=== PATIENT | male | born 1950 | race African-American/Black ===

== ENCOUNTER 2016-07-15 07:56 | Emergency (ER) | payer OTHER, MEDICAID ==
[~2016-07-15] VITALS: Ht 172.7 cm; Wt 59.0 kg
[~2016-07-15 07:56] MED LIST: ALBU2TAB44; FLUT1DIS
[2016-07-15] MEDS ORDERED: ALBUTEROL (0.083%) 2.5MG/3ML NEB HHN STA (08:42)
[2016-07-15] MEDS ORDERED: IPRATROPIUM BROMIDE (0.02%) 0.5MG/2.5ML NEB HHN STA (08:42)
[2016-07-15] MEDS ORDERED: PREDNISONE 20MG TABLET PO STA (08:42)
[2016-07-15] MEDS ORDERED: METHYLPREDNISOLONE SOD SUCC 125 MG/2 ML VIAL IV STA (08:42)
[2016-07-15 09:12] LABS: HEMATOCRIT. 44.5 % (42.0-52.0); HEMOGLOBIN. 14.6 g/dL (14.0-18.0); MEAN CORPUSCULAR HEMOGLOBIN 32.3 pg (28.0-32.0); MEAN CORPUSCULAR HGB CONC 32.8 g/dL (31.0-37.0); MEAN CORPUSCULAR VOLUME 98.5 fL (80.0-94.0); RED BLOOD CELL COUNT 4.52 mill/uL (4.7-6.1); RED CELL DISTRIBUTION WIDTH 14.2 % (11.6-14.6); WHITE BLOOD COUNT 4.1 x1000/uL (4.5-11.0)
[2016-07-15 09:17] LABS: DIFFERENTIAL COMMENT 1
[2016-07-15 09:20] LABS: INR 1.1; PARTIAL THROMBOPLASTIN TIME 27.2 sec (24.0-34.0); PROTHROMBIN TIME 11.2 sec
[2016-07-15 09:28] LABS: ALANINE AMINOTRANSFERASE 23 IU/L (13-61); ALBUMIN 4.1 g/dL (3.4-5.0); ANION GAP 12; CALCIUM 8.8 mg/dL (8.5-10.1); CARBON DIOXIDE 28 mEq/L (21-32); CHLORIDE 108 mEq/L (98-107); INDEX HEMOLYSI 2 (1-3); INDEX ICTERIC 1 (1-4); INDEX LIPEMIC 1 (1-3); LIPASE 104 IU/L (73-393); NT PRO B-TYPE NATRIURETIC PEP 95 pg/mL (5-125); TROPONIN I < 0.02 ng/mL (0.00-0.04); UREA NITROGEN BLOOD 15 mg/dL (7-21); eGFR > 60 mL/min (>60)
[2016-07-15 09:55] LABS: ATYPICAL LYMPHOCYTES 1
[2016-07-15 09:56] LABS: PLATELET ESTIMATE SLIGHTLY DECREASED
[2016-07-15 09:57] LABS: PLATELET 108 x1000/uL (130-400)
[2016-07-15 10:31] VITALS: BP 150/109
== END 2016-07-15 10:40 | disposition home or self-care (01) ==
LOC: ER 09:03
DX: J45.901 Unspecified asthma with (acute) exacerbation (principal); I87.2 Venous insufficiency (chronic) (peripheral); I10 Essential (primary) hypertension; F10.20 Alcohol dependence, uncomplicated; J44.9 Chronic obstructive pulmonary disease, unspecified; F32.9 Major depressive disorder, single episode, unspecified; E78.00 Pure hypercholesterolemia, unspecified; F20.9 Schizophrenia, unspecified; F17.210 Nicotine dependence, cigarettes, uncomplicated; Z79.899 Other long term (current) drug therapy
CPT/HCPCS: 36415; 71010; 80053; 83690; 83880; 84484; 85025; 85610; 85730; 93005; 94640; 96374; 99285; J2930; J7512; J7611

== ENCOUNTER 2016-08-20 14:06 | Emergency (ER) | payer OTHER, MEDICAID ==
[~2016-08-20] VITALS: Ht 172.7 cm; Wt 59.0 kg
[2016-08-20 14:16] VITALS: BP 142/84
== END 2016-08-20 17:34 | disposition home or self-care (01) ==
LOC: ER 16:11
DX: L30.9 Dermatitis, unspecified (principal); J45.909 Unspecified asthma, uncomplicated; J44.9 Chronic obstructive pulmonary disease, unspecified; F32.9 Major depressive disorder, single episode, unspecified; F20.9 Schizophrenia, unspecified; E78.00 Pure hypercholesterolemia, unspecified; F17.200 Nicotine dependence, unspecified, uncomplicated
CPT/HCPCS: 99283

== ENCOUNTER 2018-02-05 10:43 | Inpatient (IN) | payer OTHER, MEDICAID ==
[~2018-02-05] VITALS: Ht 177.8 cm; Wt 58.5 kg
[2018-02-05] MEDS ORDERED: SODIUM CHLORIDE 0.9% 1,000 ML IV ONE (12:49)
[2018-02-05] MEDS ORDERED: ONDANSETRON HCL 4MG/2ML INJ IV STA (12:49)
[2018-02-05] MEDS ORDERED: MORPHINE SULFATE 4 MG/ML CPJ (NOT FOR IM USE) IV STA (12:49)
[2018-02-05 13:34] LABS: BASOPHILS % 0.7 % (0.0-2.0); EOSINOPHILS % 4.1 % (0.0-5.0); HEMATOCRIT. 44.1 % (42.0-52.0); HEMOGLOBIN. 14.7 g/dL (14.0-18.0); LYMPHOCYTES % 21.3 % (20.0-50.0); MEAN CORPUSCULAR HEMOGLOBIN 32.7 pg (28.0-32.0); MEAN CORPUSCULAR VOLUME 97.8 fL (80.0-94.0); MEAN PLATELET VOLUME 9.4 fl (7.4-10.4); MONOCYTES % 14.8 % (2.0-8.0); NEUTROPHILS % 59.1 % (40.0-76.0); PLATELET 113 x1000/uL (130-400); RED BLOOD CELL COUNT 4.51 mill/uL (4.7-6.1); RED CELL DISTRIBUTION WIDTH 15.5 % (11.6-14.6)
[2018-02-05 13:35] LABS: CHLORIDE 100 mEq/L (98-107); D-DIMER 0.65 mg/L FEU (<0.50); ETHANOL BLOOD < 10 mg/dL; INR 1.1; PARTIAL THROMBOPLASTIN TIME 28.5 sec (23.4-31.0); PROTHROMBIN TIME 10.6 sec (9.1-11.1)
[2018-02-05 16:19] LABS: *AMPHETAMINES SCREEN URINE NEGATIVE (NEGATIVE); *BARBITURATES SCREEN URINE NEGATIVE (NEGATIVE); *BENZODIAZEPINES SCREEN URINE NEGATIVE (NEGATIVE); *COCAINE SCREEN URINE NEGATIVE (NEGATIVE); CANNABINOID URINE SCREEN NEGATIVE (NEGATIVE); METHADONE URINE SCREEN NEGATIVE (NEGATIVE); OPIATES URINE SCREEN PRESUMTIVE POSITIVE (NEGATIVE); PHENCYCLIDINE URINE SCREEN NEGATIVE (NEGATIVE)
[2018-02-05 16:31] LABS: CLARITY URINE CLOUDY (CLEAR); COLOR URINE DARK YELLOW (YELLOW); KETONES URINE 1+ (NEGATIVE); LEUKOCYTE ESTERASE URINE 1+ (NEGATIVE); NITRITE URINE NEGATIVE (NEGATIVE); OCCULT BLOOD URINE 1+ (NEGATIVE); PH URINE 5.5 (4.5-8.0); PROTEIN URINE 1+ (NEGATIVE); SPECIFIC GRAVITY URINE 1.024 (1.005-1.030)
[2018-02-05] MEDS ORDERED: ASPIRIN 325MG EC TABLET PO ONE (17:15)
[2018-02-05] MEDS ORDERED: IOHEXOL-350 100 ML BOTTLE ONE (18:37)
[2018-02-05 21:20] VITALS: BP 134/90
[2018-02-05] MEDS ORDERED: ONDANSETRON HCL 4MG/2ML INJ IV PRN (22:15)
[2018-02-05] MEDS ORDERED: LOPERAMIDE 2 MG/10 ML UDC PO PRN (22:15)
[2018-02-05] MEDS ORDERED: PANTOPRAZOLE SODIUM 40 MG/VIAL IV NR (23:00)
[2018-02-05] MEDS: TEMAZEPAM 15MG CAPSULE PO PRN (23:09)
[2018-02-05] MEDS: MORPHINE SULFATE 4 MG/ML CPJ (NOT FOR IM USE) IV PRN (23:10)
[2018-02-05] MEDS: SODIUM CHLORIDE 0.9% 1,000 ML IV SCH (23:24)
[2018-02-06] VITALS (7 sets, daily range): BP systolic 102–136; BP diastolic 70–96
[2018-02-06] MEDS ORDERED: CYAN10009 PO (00:04)
[2018-02-06] MEDS ORDERED: TAMS0.4C31 PO (00:04)
[2018-02-06] MEDS ORDERED: LOPE2CAP MT (00:04)
[2018-02-06] MEDS ORDERED: FOLI-43 PO (00:04)
[2018-02-06 02:59] LABS: CREATINE KINASE 137 IU/L (39-308); CREATINE KINASE MB FRACTION 1.2 ng/mL (0.5-3.6)
[2018-02-06] MEDS ORDERED: IPRATROPIUM/ALBUTEROL 0.5-3(2.5)MG/3ML NEB HHN PRN (06:15)
[2018-02-06] MEDS ORDERED: CYANOCOBALAMIN 1000MCG TABLET PO SCH (07:40)
[2018-02-06 08:00] LABS: BASOPHILS % 0.4 % (0.0-2.0); EOSINOPHILS % 5.3 % (0.0-5.0); HEMATOCRIT. 42.3 % (42.0-52.0); HEMOGLOBIN. 13.9 g/dL (14.0-18.0); LYMPHOCYTES % 23.7 % (20.0-50.0); MEAN CORPUSCULAR HEMOGLOBIN 32.7 pg (28.0-32.0); MEAN CORPUSCULAR VOLUME 99.1 fL (80.0-94.0); MEAN PLATELET VOLUME 8.8 fl (7.4-10.4); MONOCYTES % 14.4 % (2.0-8.0); NEUTROPHILS % 56.2 % (40.0-76.0); PLATELET 93 x1000/uL (130-400); RED BLOOD CELL COUNT 4.27 mill/uL (4.7-6.1); RED CELL DISTRIBUTION WIDTH 15.6 % (11.6-14.6)
[2018-02-06] MEDS ORDERED: THIAMINE HCL 100MG TABLET PO SCH (09:00)
[2018-02-06] MEDS ORDERED: ASPIRIN 81MG TABLET PO SCH (09:00)
[2018-02-06] MEDS ORDERED: TAMSULOSIN HCL 0.4MG SR CAPSULE PO SCH (09:00)
[2018-02-06] MEDS ORDERED: PANTOPRAZOLE SODIUM 40 MG/VIAL IV SCH ×2 (09:00→17:00)
[2018-02-06] MEDS ORDERED: FOLIC ACID 1MG TABLET PO SCH (09:00)
[2018-02-06] MEDS ORDERED: IPRATROPIUM/ALBUTEROL 0.5-3(2.5)MG/3ML NEB HHN SCH (09:00)
[2018-02-06] MEDS ORDERED: ENOXAPARIN 40MG/0.4ML SYR SUBCUT SCH (09:00)
[2018-02-06] MEDS: MORPHINE SULFATE 4 MG/ML CPJ (NOT FOR IM USE) IV PRN ×2 (09:05→21:12)
[2018-02-06 09:23] LABS: CHLORIDE 104 mEq/L (98-107); CREATINE KINASE 130 IU/L (39-308); CREATINE KINASE MB FRACTION 1.5 ng/mL (0.5-3.6)
[2018-02-06] MEDS ORDERED: SIMETHICONE 80MG TABLET CHEW PO PRN (12:15)
[2018-02-06] MEDS ORDERED: LEVOFLOXACIN 500MG PREMIX 100 ML IV SCH (13:00)
[2018-02-06] MEDS ORDERED: NICOTINE 21MG PATCH TD SCH (13:45)
[2018-02-06] MEDS: SUCRALFATE 1 G/10 ML UDC PO SCH ×2 (16:16→21:11)
[2018-02-06] MEDS: HYDROCORTISONE 2.5% OINT 20GM TOP SCH ×2 (16:17→21:11)
[2018-02-06 18:01] LABS: CREATINE KINASE 143 IU/L (39-308); CREATINE KINASE MB FRACTION 1.3 ng/mL (0.5-3.6)
[2018-02-06] MEDS ORDERED: LORAZEPAM 2MG/ML CPJ IV PRN (18:30)
[2018-02-06 18:59] LABS: TOTAL IRON BINDING CAPACITY 263 ug/dL (250-450)
[2018-02-06 19:37] LABS: FERRITIN 281 ng/mL (22-322); VITAMIN B12 SERUM 616 pg/mL (211-911)
[2018-02-06 19:56] LABS: FOLIC ACID (FOLATE) SERUM > 20.00 ng/mL (>5.38)
[2018-02-06] MEDS ORDERED: BUDESONIDE 0.5MG/2ML NEB HHN SCH (21:00)
[2018-02-06] MEDS: TEMAZEPAM 15MG CAPSULE PO PRN (21:11)
[2018-02-07] MEDS: SODIUM CHLORIDE 0.9% 1,000 ML IV SCH
[2018-02-07] MEDS: HYDROCORTISONE 2.5% OINT 20GM TOP SCH (06:36)
[2018-02-07] MEDS: SUCRALFATE 1 G/10 ML UDC PO SCH (06:39)
== END 2018-02-07 07:30 | disposition left against medical advice (07) | DRG 391 ==
LOC: ER 10:43 → EDBEDREQ 17:12 → ENRESERV 19:22 → 8WST 21:15
PROVIDERS: ADMIT Internal Medicine; ATTEND Internal Medicine
DX: K29.70 Gastritis, unspecified, without bleeding (principal); K85.20 Alcohol induced acute pancreatitis without necrosis or infection; J44.1 Chronic obstructive pulmonary disease with (acute) exacerbation; N39.0 Urinary tract infection, site not specified; K86.0 Alcohol-induced chronic pancreatitis; D53.9 Nutritional anemia, unspecified; R19.7 Diarrhea, unspecified; K57.90 Diverticulosis of intestine, part unspecified, without perforation or abscess without bleeding; D69.6 Thrombocytopenia, unspecified; D72.819 Decreased white blood cell count, unspecified; R07.9 Chest pain, unspecified; Z53.21 Procedure and treatment not carried out due to patient leaving prior to being seen by health care provider; E78.00 Pure hypercholesterolemia, unspecified; E86.0 Dehydration; F17.210 Nicotine dependence, cigarettes, uncomplicated; F20.9 Schizophrenia, unspecified; F32.9 Major depressive disorder, single episode, unspecified; I10 Essential (primary) hypertension; K76.0 Fatty (change of) liver, not elsewhere classified; K86.89 Other specified diseases of pancreas; L30.9 Dermatitis, unspecified; N28.1 Cyst of kidney, acquired; N40.0 Benign prostatic hyperplasia without lower urinary tract symptoms; F10.20 Alcohol dependence, uncomplicated; Z79.899 Other long term (current) drug therapy
CPT/HCPCS: 36415; 71045; 71275; 74176; 76700; 80048; 80076; 80305; 82550; 82553; 82607; 82728; 82746; 83540; 83550; 83880; 84153; 84484; 85379; 87077; 87186; 93005; 93306; 96361; 96374; 96375; 99285; C9113; G0482; J1650; J1956; J2270; J2405; J7030; Q9967; G0103

== ENCOUNTER 2023-08-02 11:52 | Inpatient (IN) | payer MEDICARE, OTHER ==
[~2023-08-02] VITALS: Ht 172.7 cm; Wt 57.2 kg
[~2023-08-02 11:52] MED LIST changes: -ALBU2TAB44; +AMLO5TAB88 PO; -FLUT1DIS; +MIRT-89 PO; +OMEP20TA23 MT; +THIA100T72 MT; +albuterol inhaler; +flonase nasal spray; +trelegy ellipta
[2023-08-02] MEDS: METHYLPREDNISOLONE SOD SUCC 125MG/2ML (ACT-O-VIAL) IV STA (12:54)
[2023-08-02] MEDS: ASPIRIN 81MG TABLET PO ONE (12:54)
[2023-08-02 13:06] LABS: BASOPHILS % 0.4 % (0.0-2.0); DIFFERENTIAL COMMENT 0; EOSINOPHILS % 4.7 % (0.0-5.0); HEMATOCRIT. 42.6 % (42.0-52.0); HEMOGLOBIN. 14.2 g/dL (14.0-18.0); LYMPHOCYTES % 29.2 % (20.0-50.0); MEAN CORPUSCULAR HEMOGLOBIN 33.8 pg (28.0-32.0); MEAN CORPUSCULAR HGB CONC 33.2 g/dL (31.0-37.0); MEAN CORPUSCULAR VOLUME 101.6 fL (80.0-94.0); MEAN PLATELET VOLUME 8.8 fl (7.4-10.4); MONOCYTES % 13.1 % (2.0-8.0); NEUTROPHILS % 52.6 % (40.0-76.0); PLATELET 162 x1000/uL (130-400); RED CELL DISTRIBUTION WIDTH 16.9 % (11.6-14.6); WHITE BLOOD COUNT 3.6 x1000/uL (4.5-11.0)
[2023-08-02 14:17] LABS: CHLORIDE 103 mEq/L (98-107); POTASSIUM 3.9 mEq/L (3.5-5.1); SODIUM 136 mEq/L (136-145)
[2023-08-02 14:18] LABS: CARBON DIOXIDE 22 mEq/L (21-32)
[2023-08-02 14:19] LABS: CALCIUM 9.3 mg/dL (8.7-10.4)
[2023-08-02 14:23] LABS: CREATININE 1.4 mg/dL (0.6-1.3); GLUCOSE 94 mg/dL (70-105)
[2023-08-02 14:24] LABS: TROPONIN I HIGH SENSITIVITY 5 ng/L (3.0-53); UREA NITROGEN BLOOD 22 mg/dL (9-23)
[2023-08-02 14:25] LABS: ALANINE AMINOTRANSFERASE 12 IU/L (10-49); ALBUMIN 4.5 g/dL (3.2-4.8); ASPARTATE AMINOTRANSFERASE 31 IU/L (<34)
[2023-08-02 14:26] LABS: BILIRUBIN TOTAL 1.7 mg/dL (0.1-1.0); PROTEIN TOTAL 7.6 g/dL (6.0-8.3)
[2023-08-02] MEDS: IPRATROPIUM BROMIDE (0.02%) 0.5MG/2.5ML NEB HHN STA (18:34)
[2023-08-02] MEDS: ALBUTEROL (0.083%) 2.5MG/3ML NEB HHN STA (18:34)
[2023-08-02 20:00] VITALS: BP 116/86; PULSE 93; RESP 30; TEMP 98
[2023-08-02 21:35] VITALS: BP 116/86; PULSE 96; RESP 18; TEMP 98
[2023-08-03] VITALS (10 sets, daily range): BP systolic 110–147; BP diastolic 75–111; PULSE 80–96; RESP 18–22; TEMP 97.3–98.2; O2SAT 94–98
[2023-08-03 00:03] LABS: HEPATITIS B SURFACE ANTIGEN NEGATIVE (Negative)
[2023-08-03 00:29] LABS: HEPATITIS C AB REACTIVE (Pos) (Negative)
[2023-08-03] MEDS ORDERED: IPRATROPIUM/ALBUTEROL 0.5-3(2.5)MG/3ML NEB HHN PRN (00:30)
[2023-08-03] MEDS ORDERED: HYDROCODONE/ACETAMINOPHEN 5/325MG TABLET PO PRN (00:30)
[2023-08-03] MEDS ORDERED: ONDANSETRON HCL 4MG/2ML INJ IV PRN (00:30)
[2023-08-03] MEDS ORDERED: ACETAMINOPHEN 650MG/20.3ML UDC PO PRN (00:30)
[2023-08-03] MEDS ORDERED: NALOXONE HCL 0.4MG/ML VIAL IV PRN (00:45)
[2023-08-03 06:57] LABS: HEMATOCRIT. 39.7 % (42.0-52.0); HEMOGLOBIN. 13.1 g/dL (14.0-18.0); MEAN CORPUSCULAR HEMOGLOBIN 33.3 pg (28.0-32.0); MEAN CORPUSCULAR HGB CONC 33.1 g/dL (31.0-37.0); MEAN CORPUSCULAR VOLUME 100.7 fL (80.0-94.0); MEAN PLATELET VOLUME 9.2 fl (7.4-10.4); PLATELET 114 x1000/uL (130-400); RED BLOOD CELL COUNT 3.94 mill/uL (4.7-6.1); RED CELL DISTRIBUTION WIDTH 16.6 % (11.6-14.6); WHITE BLOOD COUNT 2.1 x1000/uL (4.5-11.0)
[2023-08-03] MEDS ORDERED: CLONIDINE 0.1MG TABLET PO PRN (07:00)
[2023-08-03] MEDS ORDERED: DOCUSATE SODIUM 100MG CAPSULE PO PRN (07:00)
[2023-08-03] MEDS: OMEPRAZOLE 20MG CAPSULE EXTENDED RELEASE PO SCH (07:02)
[2023-08-03 07:09] LABS: DIFFERENTIAL COMMENT 1
[2023-08-03 07:23] LABS: CHLORIDE 103 mEq/L (98-107); POTASSIUM 4.1 mEq/L (3.5-5.1); SODIUM 136 mEq/L (136-145)
[2023-08-03 07:24] LABS: CARBON DIOXIDE 26 mEq/L (21-32)
[2023-08-03 07:29] LABS: CREATININE 1.2 mg/dL (0.6-1.3)
[2023-08-03 07:30] LABS: GLUCOSE 152 mg/dL (70-105); UREA NITROGEN BLOOD 25 mg/dL (9-23)
[2023-08-03] MEDS: AMLODIPINE 5MG TABLET PO SCH (08:08)
[2023-08-03] MEDS: ENOXAPARIN 30MG/0.3ML SYR SUBCUT SCH (08:08)
[2023-08-03] MEDS: IPRATROPIUM/ALBUTEROL 0.5-3(2.5)MG/3ML NEB HHN SCH (08:51)
[2023-08-03 16:05] LABS: ANISOCYTOSIS 1+; PLATELET ESTIMATE SLIGHTLY DECREASED
[2023-08-03 17:06] LABS: *AMPHETAMINES SCREEN URINE NEGATIVE (NEGATIVE); *BARBITURATES SCREEN URINE NEGATIVE (NEGATIVE); *BENZODIAZEPINES SCREEN URINE NEGATIVE (NEGATIVE); *COCAINE SCREEN URINE NEGATIVE (NEGATIVE); CANNABINOID URINE SCREEN NEGATIVE (NEGATIVE); ECSTASY MDMA SCREEN URINE NEGATIVE (NEGATIVE); METHADONE URINE SCREEN NEGATIVE (NEGATIVE); OPIATES URINE SCREEN NEGATIVE (NEGATIVE); PHENCYCLIDINE URINE SCREEN NEGATIVE (NEGATIVE)
[2023-08-03] MEDS: METHYLPREDNISOLONE SOD SUCC 40MG/ML (ACT-O-VIAL) IV SCH (18:53)
[2023-08-03] MEDS: MIRTAZAPINE 15MG TABLET PO SCH (21:13)
[2023-08-04 04:00] VITALS: BP 110/79; PULSE 87; TEMP 98.2
[2023-08-04 08:00] VITALS: BP 120/79; PULSE 85; TEMP 97.9
[2023-08-04 08:18] LABS: BASOPHILS % 0.4 % (0.0-2.0); DIFFERENTIAL COMMENT 0; HEMATOCRIT. 39.5 % (42.0-52.0); HEMOGLOBIN. 12.8 g/dL (14.0-18.0); LYMPHOCYTES % 30.2 % (20.0-50.0); MEAN CORPUSCULAR HEMOGLOBIN 33.2 pg (28.0-32.0); MEAN CORPUSCULAR HGB CONC 32.5 g/dL (31.0-37.0); MEAN CORPUSCULAR VOLUME 102.1 fL (80.0-94.0); MONOCYTES % 11.8 % (2.0-8.0); NEUTROPHILS % 55.6 % (40.0-76.0); PLATELET 113 x1000/uL (130-400); RED BLOOD CELL COUNT 3.86 mill/uL (4.7-6.1); RED CELL DISTRIBUTION WIDTH 15.9 % (11.6-14.6)
[2023-08-04 08:24] LABS: CARBON DIOXIDE 28 mEq/L (21-32); CHLORIDE 106 mEq/L (98-107); POTASSIUM 3.5 mEq/L (3.5-5.1); SODIUM 138 mEq/L (136-145)
[2023-08-04 08:25] LABS: CALCIUM 9.4 mg/dL (8.7-10.4)
[2023-08-04 08:28] LABS: CREATININE 1.1 mg/dL (0.6-1.3)
[2023-08-04 08:30] LABS: GLUCOSE 98 mg/dL (70-105); UREA NITROGEN BLOOD 23 mg/dL (9-23)
[2023-08-04 09:18] VITALS: PULSE 77; RESP 18; O2SAT 95
[2023-08-04] MEDS ORDERED: IOHEXOL-350 100 ML BOTTLE ONE (11:42)
[2023-08-04 12:49] LABS: BG BASE EXCESS 2.4 mmol/L (-2.0-2.0); BG CARBOXYHEMOGLOBIN 0.7 % (0.5-1.5); BG DEOXYHEMOGLOBIN 3.4 % (0.0-5.0); BG FRACTION INSPIRED OXYGEN 21; BG HCO3 ACT 26.9 mmol/L (22.0-26.0); BG METHEMOGLOBIN 0.4 % (0.0-1.5); BG OXYGEN SATURATION 96.6 % (92.0-98.5); BG OXYHEMOGLOBIN 95.5 % (94.0-97.0); BG PCO2 41.5 mmHg (35.0-45.0); BG PO2 82.9 mmHg (75.0-100.0); BG SAMPLE SITE LEFT BRACHIAL; BG VENT MODE ROOM AIR
[2023-08-04 13:02] LABS: AMMONIA < 17 uMol/L (<32)
[2023-08-04 14:33] VITALS: BP 119/78; PULSE 84; TEMP 98; O2SAT 98
[2023-08-04 15:34] VITALS: PULSE 80; RESP 18; O2SAT 94
== END 2023-08-04 15:50 | disposition home or self-care (01) | DRG 202 ==
LOC: ER 11:52 → 3WST 15:02 → EDBEDREQTM 15:05 → EDBEDREQ 15:05
PROVIDERS: ADMIT Internal Medicine; ATTEND Internal Medicine
DX: J45.901 Unspecified asthma with (acute) exacerbation (principal); J44.1 Chronic obstructive pulmonary disease with (acute) exacerbation; N17.9 Acute kidney failure, unspecified; Z68.1 Body mass index [BMI] 19.9 or less, adult; F20.9 Schizophrenia, unspecified; I10 Essential (primary) hypertension; F32.A Depression, unspecified; F10.20 Alcohol dependence, uncomplicated; F17.210 Nicotine dependence, cigarettes, uncomplicated; E78.00 Pure hypercholesterolemia, unspecified; D72.819 Decreased white blood cell count, unspecified
CPT/HCPCS: 36415; 36600; 71045; 71275; 80048; 80053; 80305; 82140; 82375; 82805; 83880; 84484; 85025; 85379; 86705; 87340; 93005; 93970; 94640; 99285; J1650; J2920; J2930; Q9967

== ENCOUNTER 2023-08-23 21:29 | Inpatient (IN) | payer MEDICARE, OTHER ==
[~2023-08-23] VITALS: Ht 157.5 cm; Wt 51.4 kg
[2023-08-23] MEDS: METHYLPREDNISOLONE SOD SUCC 125MG/2ML (ACT-O-VIAL) IV STA (21:58)
[2023-08-23] MEDS: MAGNESIUM 2 G PREMIX 50 ML IV ONE (22:00)
[2023-08-23 22:21] VITALS: PULSE 103; RESP 22; O2SAT 96
[2023-08-23] MEDS: ALBUTEROL (0.083%) 2.5MG/3ML NEB HHN SCH (22:21)
[2023-08-23] MEDS: IPRATROPIUM BROMIDE (0.02%) 0.5MG/2.5ML NEB HHN STA (22:21)
[2023-08-23 23:14] VITALS: PULSE 101; RESP 20; O2SAT 98
[2023-08-23 23:30] LABS: BASOPHILS % 0.5 % (0.0-2.0); EOSINOPHILS % 5.3 % (0.0-5.0); HEMATOCRIT. 39.5 % (42.0-52.0); HEMOGLOBIN. 13.1 g/dL (14.0-18.0); LYMPHOCYTES % 39.7 % (20.0-50.0); MEAN CORPUSCULAR HEMOGLOBIN 33.1 pg (28.0-32.0); MEAN CORPUSCULAR HGB CONC 33.2 g/dL (31.0-37.0); MEAN CORPUSCULAR VOLUME 99.7 fL (80.0-94.0); MEAN PLATELET VOLUME 8.3 fl (7.4-10.4); NEUTROPHILS % 40.5 % (40.0-76.0); PLATELET 155 x1000/uL (130-400); RED BLOOD CELL COUNT 3.96 mill/uL (4.7-6.1); RED CELL DISTRIBUTION WIDTH 15.7 % (11.6-14.6); WHITE BLOOD COUNT 2.6 x1000/uL (4.5-11.0)
[2023-08-23 23:36] LABS: CHLORIDE 103 mEq/L (98-107); POTASSIUM 3.8 mEq/L (3.5-5.1); SODIUM 138 mEq/L (136-145)
[2023-08-23 23:37] LABS: CARBON DIOXIDE 27 mEq/L (21-32)
[2023-08-23 23:38] LABS: CALCIUM 9.8 mg/dL (8.7-10.4)
[2023-08-23 23:39] VITALS: PULSE 99; RESP 18; O2SAT 99
[2023-08-23 23:40] LABS: PARTIAL THROMBOPLASTIN TIME 27.1 sec (23.4-31.0); PROTHROMBIN TIME 10.9 sec (9.6-11.0)
[2023-08-23 23:42] LABS: GLUCOSE 72 mg/dL (70-105)
[2023-08-23 23:43] LABS: UREA NITROGEN BLOOD 20 mg/dL (9-23)
[2023-08-23 23:51] LABS: CREATININE 1.5 mg/dL (0.6-1.3); TROPONIN I HIGH SENSITIVITY < 4 ng/L (3.0-53)
[2023-08-24] VITALS (10 sets, daily range): BP systolic 114–148; BP diastolic 72–101; PULSE 86–103; RESP 17–20; TEMP 97.2–97.5
[2023-08-24] MEDS: AMLODIPINE 5MG TABLET PO SCH (08:55)
[2023-08-24] MEDS ORDERED: AMLODIPINE 5MG TABLET PO SCH (09:00)
[2023-08-24] MEDS: IPRATROPIUM/ALBUTEROL 0.5-3(2.5)MG/3ML NEB HHN SCH (09:58)
[2023-08-24] MEDS ORDERED: ACETAMINOPHEN 325MG TABLET PO PRN (12:45)
[2023-08-24] MEDS ORDERED: DOCUSATE SODIUM 100MG CAPSULE PO PRN (12:45)
[2023-08-24] MEDS ORDERED: IPRATROPIUM/ALBUTEROL 0.5-3(2.5)MG/3ML NEB HHN PRN (12:45)
[2023-08-24] MEDS ORDERED: ONDANSETRON HCL 4MG/2ML INJ IV PRN (12:45)
[2023-08-24] MEDS ORDERED: CLONIDINE 0.1MG TABLET PO PRN (12:45)
[2023-08-24 15:11] LABS: BG BASE EXCESS -0.4 mmol/L (-2.0-2.0); BG CARBOXYHEMOGLOBIN 0.3 % (0.5-1.5); BG DEOXYHEMOGLOBIN 3.1 % (0.0-5.0); BG FRACTION INSPIRED OXYGEN 21; BG HCO3 ACT 23.3 mmol/L (22.0-26.0); BG METHEMOGLOBIN 0.2 % (0.0-1.5); BG OXYGEN SATURATION 96.9 % (92.0-98.5); BG OXYHEMOGLOBIN 96.4 % (94.0-97.0); BG PH 7.441 (7.350-7.450); BG PO2 93.7 mmHg (75.0-100.0); BG SAMPLE SITE RIGHT RADIAL; BG TOTAL HEMOGLOBIN 12.8 g/dL (12.0-18.0); BG VENT MODE ROOM AIR
[2023-08-24] MEDS: DILTIAZEM HCL 30MG TABLET PO SCH (15:46)
[2023-08-24] MEDS: ENOXAPARIN 30MG/0.3ML SYR SUBCUT SCH (15:47)
[2023-08-24] MEDS: METHYLPREDNISOLONE SOD SUCC 40MG/ML (ACT-O-VIAL) IV NR (15:48)
[2023-08-24 16:20] LABS: HEMATOCRIT. 35.9 % (42.0-52.0); HEMOGLOBIN. 11.9 g/dL (14.0-18.0); MEAN CORPUSCULAR HEMOGLOBIN 32.8 pg (28.0-32.0); MEAN CORPUSCULAR HGB CONC 33.1 g/dL (31.0-37.0); MEAN PLATELET VOLUME 8.5 fl (7.4-10.4); PLATELET 148 x1000/uL (130-400); RED BLOOD CELL COUNT 3.63 mill/uL (4.7-6.1); RED CELL DISTRIBUTION WIDTH 15.7 % (11.6-14.6)
[2023-08-24 16:22] LABS: CHLORIDE 102 mEq/L (98-107); DIFFERENTIAL COMMENT 1; SODIUM 135 mEq/L (136-145)
[2023-08-24 16:23] LABS: CALCIUM 9.7 mg/dL (8.7-10.4); CARBON DIOXIDE 26 mEq/L (21-32)
[2023-08-24 16:27] LABS: TRIGLYCERIDE 49 mg/dL (0-150)
[2023-08-24 16:28] LABS: CREATININE 1.2 mg/dL (0.6-1.3); GLUCOSE 144 mg/dL (70-105); UREA NITROGEN BLOOD 25 mg/dL (9-23)
[2023-08-24 16:29] LABS: LDL CHOLESTEROL 93 mg/dL (5-100)
[2023-08-24 16:30] LABS: ALANINE AMINOTRANSFERASE 12 IU/L (10-49); ASPARTATE AMINOTRANSFERASE 23 IU/L (<34); BILIRUBIN DIRECT 0.2 mg/dL (<=3.0); CHOLESTEROL 180 mg/dL (<200); HDL CHOLESTEROL 75 mg/dL (>55)
[2023-08-24 16:31] LABS: BILIRUBIN TOTAL 0.5 mg/dL (0.1-1.0)
[2023-08-24 17:01] LABS: PLATELET ESTIMATE NORMAL
[2023-08-25] VITALS (12 sets, daily range): BP systolic 95–124; BP diastolic 67–81; PULSE 75–91; RESP 16–22; TEMP 96.8–98.4; O2SAT 97–99
[2023-08-25 06:39] LABS: CARBON DIOXIDE 30 mEq/L (21-32); CHLORIDE 103 mEq/L (98-107); POTASSIUM 4.5 mEq/L (3.5-5.1); SODIUM 137 mEq/L (136-145)
[2023-08-25 06:40] LABS: CALCIUM 9.6 mg/dL (8.7-10.4)
[2023-08-25 06:45] LABS: GLUCOSE 120 mg/dL (70-105); UREA NITROGEN BLOOD 22 mg/dL (9-23)
[2023-08-25 07:39] LABS: BASOPHILS % 0.2 % (0.0-2.0); EOSINOPHILS % 0.1 % (0.0-5.0); HEMATOCRIT. 36.4 % (42.0-52.0); HEMOGLOBIN. 11.9 g/dL (14.0-18.0); LYMPHOCYTES % 11.8 % (20.0-50.0); MEAN CORPUSCULAR HEMOGLOBIN 32.6 pg (28.0-32.0); MEAN CORPUSCULAR HGB CONC 32.7 g/dL (31.0-37.0); MEAN CORPUSCULAR VOLUME 99.7 fL (80.0-94.0); MEAN PLATELET VOLUME 9.1 fl (7.4-10.4); MONOCYTES % 11.3 % (2.0-8.0); NEUTROPHILS % 76.6 % (40.0-76.0); PLATELET 146 x1000/uL (130-400); RED BLOOD CELL COUNT 3.65 mill/uL (4.7-6.1); RED CELL DISTRIBUTION WIDTH 15.6 % (11.6-14.6); WHITE BLOOD COUNT 4.2 x1000/uL (4.5-11.0)
[2023-08-25] MEDS: PANTOPRAZOLE SODIUM 40 MG/VIAL IV SCH (10:08)
[2023-08-25] MEDS: METHYLPREDNISOLONE SOD SUCC 40MG/ML (ACT-O-VIAL) IV SCH (10:08)
[2023-08-25 14:03] LABS: CLARITY URINE CLOUDY (CLEAR); COLOR URINE YELLOW (YELLOW); GLUCOSE URINE TRACE (NEGATIVE); KETONES URINE TRACE (NEGATIVE); LEUKOCYTE ESTERASE URINE 1+ (NEGATIVE); NITRITE URINE POSITIVE (NEGATIVE); OCCULT BLOOD URINE NEGATIVE (NEGATIVE); PH URINE 5.5 (4.5-8.0); PROTEIN URINE TRACE (NEGATIVE); SPECIFIC GRAVITY URINE 1.029 (1.005-1.030)
[2023-08-25 14:39] LABS: *AMPHETAMINES SCREEN URINE NEGATIVE (NEGATIVE)
[2023-08-25 14:40] LABS: *BARBITURATES SCREEN URINE NEGATIVE (NEGATIVE); *BENZODIAZEPINES SCREEN URINE NEGATIVE (NEGATIVE); *COCAINE SCREEN URINE NEGATIVE (NEGATIVE); CANNABINOID URINE SCREEN NEGATIVE (NEGATIVE); ECSTASY MDMA SCREEN URINE NEGATIVE (NEGATIVE); METHADONE URINE SCREEN NEGATIVE (NEGATIVE); OPIATES URINE SCREEN NEGATIVE (NEGATIVE); PHENCYCLIDINE URINE SCREEN NEGATIVE (NEGATIVE)
[2023-08-25 16:00] LABS: SQUAMOUS EPITHELIAL CELL URINE 1+ /lpf (RARE/1+)
[2023-08-25 16:02] LABS: BACTERIA URINE 4+; RBC URINE NONE SEEN /hpf (0-2); WBC URINE 15-25 /hpf (0-2)
[2023-08-26] VITALS (11 sets, daily range): BP systolic 103–142; BP diastolic 76–95; PULSE 81–97; RESP 16–19; TEMP 97.1–98.1; O2SAT 95–98
[2023-08-26] MEDS: ACETAMINOPHEN 325MG TABLET PO PRN (12:34)
[2023-08-26] MEDS ORDERED: CEFTRIAXONE 1GM/50ML 50 ML IV SCH (14:00)
[2023-08-26] MEDS: CEFTRIAXONE 1GM/50ML 50 ML IV SCH (17:12)
[2023-08-27 02:22] VITALS: PULSE 94; RESP 14; O2SAT 96
[2023-08-27 04:00] VITALS: BP 128/85; PULSE 94; RESP 18; TEMP 98.5
[2023-08-27 08:00] VITALS: BP 129/92; PULSE 61; RESP 18; TEMP 98
[2023-08-27 12:00] VITALS: BP 121/85; PULSE 88; RESP 15; TEMP 97.7
[2023-08-27] MEDS ORDERED: LEVO-65 MT (12:42)
[2023-08-27] MEDS ORDERED: ALBU18HF2 IH (12:42)
[2023-08-27] MEDS ORDERED: IPRA3AMP9 NEB (12:42)
[2023-08-27] MEDS ORDERED: P20 MT (12:42)
[2023-08-27] MEDS ORDERED: TAMS-11 MT (12:42)
[2023-08-27 13:15] VITALS: BP 121/85; PULSE 88; TEMP 97.7
[2023-08-27] MEDS: TAMSULOSIN HCL 0.4MG SR CAPSULE PO SCH (13:41)
[2023-08-27 13:42] VITALS: PULSE 88
[2023-08-28] MEDS ORDERED: FAMOTIDINE 20MG/2ML VIAL IV SCH (09:00)
== END 2023-08-27 14:00 | disposition hospice, home (50) | DRG 189 ==
LOC: ER 21:29 → 7EST 08-24 01:00 → EDBEDREQ 08-24 01:03 → EDBEDREQTM 08-24 01:03
PROVIDERS: ADMIT Internal Medicine; ATTEND Internal Medicine
DX: J96.00 Acute respiratory failure, unspecified whether with hypoxia or hypercapnia (principal); J44.1 Chronic obstructive pulmonary disease with (acute) exacerbation; J45.901 Unspecified asthma with (acute) exacerbation; N17.9 Acute kidney failure, unspecified; N39.0 Urinary tract infection, site not specified; G90.8 Other disorders of autonomic nervous system; I10 Essential (primary) hypertension; D64.9 Anemia, unspecified; Z20.822 Contact with and (suspected) exposure to COVID-19; F32.A Depression, unspecified; F20.9 Schizophrenia, unspecified; F17.210 Nicotine dependence, cigarettes, uncomplicated; E78.00 Pure hypercholesterolemia, unspecified; D72.819 Decreased white blood cell count, unspecified
CPT/HCPCS: 36415; 36600; 71045; 80048; 80061; 80076; 80305; 81003; 82375; 82805; 83880; 84145; 84484; 85025; 85379; 87426; 93005; 94640; 99291; C9113; J0696; J1650; J2920; J2930; J3475

== ENCOUNTER 2023-08-30 17:41 | Emergency (ER) | payer MEDICARE, OTHER ==
[~2023-08-30] VITALS: Ht 172.7 cm; Wt 71.0 kg
[~2023-08-30 17:41] MED LIST changes: +ALBU18HF2 IH; +IPRA3AMP9 NEB; +LEVO-65 MT; +P20 MT; +TAMS-11 MT
[2023-08-30] MEDS ORDERED: METHYLPREDNISOLONE SOD SUCC 125MG/2ML (ACT-O-VIAL) IV STA (18:38)
[2023-08-30] MEDS: ALBUTEROL (0.083%) 2.5MG/3ML NEB HHN STA (19:02)
[2023-08-30] MEDS: IPRATROPIUM BROMIDE (0.02%) 0.5MG/2.5ML NEB HHN STA (19:02)
[2023-08-30 19:05] VITALS: PULSE 99; RESP 22; O2SAT 96
[2023-08-30 19:16] LABS: BG BASE EXCESS 2.3 mmol/L (-2.0-2.0); BG CARBOXYHEMOGLOBIN 0.5 % (0.5-1.5); BG DEOXYHEMOGLOBIN 1.9 % (0.0-5.0); BG FRACTION INSPIRED OXYGEN 446; BG HCO3 ACT 26.4 mmol/L (22.0-26.0); BG METHEMOGLOBIN 0.3 % (0.0-1.5); BG OXYGEN SATURATION 98.1 % (92.0-98.5); BG OXYHEMOGLOBIN 97.3 % (94.0-97.0); BG PH 7.448 (7.350-7.450); BG PO2 116.3 mmHg (75.0-100.0); BG SAMPLE SITE RIGHT BRACHIAL; BG TOTAL HEMOGLOBIN 12.8 g/dL (12.0-18.0); BG VENT MODE NASAL CANNULA
[2023-08-30 20:41] LABS: BASOPHILS % 0.1 % (0.0-2.0); EOSINOPHILS % 1.1 % (0.0-5.0); HEMATOCRIT. 39.4 % (42.0-52.0); HEMOGLOBIN. 12.8 g/dL (14.0-18.0); LYMPHOCYTES % 21.7 % (20.0-50.0); MEAN CORPUSCULAR HEMOGLOBIN 32.4 pg (28.0-32.0); MEAN CORPUSCULAR HGB CONC 32.6 g/dL (31.0-37.0); MEAN CORPUSCULAR VOLUME 99.4 fL (80.0-94.0); MEAN PLATELET VOLUME 9.2 fl (7.4-10.4); MONOCYTES % 10.8 % (2.0-8.0); NEUTROPHILS % 66.3 % (40.0-76.0); PLATELET 137 x1000/uL (130-400); RED BLOOD CELL COUNT 3.96 mill/uL (4.7-6.1); RED CELL DISTRIBUTION WIDTH 15.2 % (11.6-14.6); WHITE BLOOD COUNT 3.4 x1000/uL (4.5-11.0)
[2023-08-30 20:50] LABS: CHLORIDE 104 mEq/L (98-107); PARTIAL THROMBOPLASTIN TIME 21.7 sec (23.4-31.0); POTASSIUM 3.6 mEq/L (3.5-5.1); PROTHROMBIN TIME 10.9 sec (9.6-11.0); SODIUM 140 mEq/L (136-145)
[2023-08-30 20:51] LABS: CARBON DIOXIDE 31 mEq/L (21-32)
[2023-08-30 20:52] LABS: CALCIUM 10.1 mg/dL (8.7-10.4)
[2023-08-30 20:56] LABS: GLUCOSE 117 mg/dL (70-105)
[2023-08-30 20:57] LABS: UREA NITROGEN BLOOD 24 mg/dL (9-23)
[2023-08-30 20:58] LABS: ETHANOL BLOOD < 10 mg/dL (<10); TROPONIN I HIGH SENSITIVITY < 4 ng/L (3.0-53)
[2023-08-30] MEDS: METHYLPREDNISOLONE SOD SUCC 125MG/2ML (ACT-O-VIAL) IV NR (21:03)
[2023-08-30] MEDS: MAGNESIUM 2 G PREMIX 50 ML IV ONE (21:06)
[2023-08-31 04:30] VITALS: BP 134/88; PULSE 94; RESP 17; TEMP 98.6
== END 2023-08-31 06:12 | disposition left against medical advice (07) ==
LOC: ER 17:41 → EDBEDREQ 23:06 → EDBEDREQTM 23:06 → ER 08-31 06:12 → CANBEDREQ 09-01 22:33
DX: J44.1 Chronic obstructive pulmonary disease with (acute) exacerbation (principal); J96.01 Acute respiratory failure with hypoxia; E78.00 Pure hypercholesterolemia, unspecified; I10 Essential (primary) hypertension; F20.9 Schizophrenia, unspecified; F10.20 Alcohol dependence, uncomplicated; Y90.0 Blood alcohol level of less than 20 mg/100 ml
CPT/HCPCS: 80048; 80320; 83880; 85025; 85610; 85730; 86850; 86900; 86901; 87040; 84484; 36415; 71045; 94640; 82805; 82375; 93005; 96365; 96366; 96375; 99285; 36600; J3475; J2930; G0480

== ENCOUNTER 2023-10-24 22:53 | Emergency (ER) | payer MEDICARE, OTHER ==
[~2023-10-24] VITALS: Ht 172.7 cm; Wt 59.0 kg
[2023-10-24 23:24] VITALS: O2SAT 98
[2023-10-25] MEDS: TETANUS, DIPHTHERIA, PERTUSSIS VAC/PF 0.5ML (>10YR OLD) IM ONE (01:45)
[2023-10-25 04:44] VITALS: BP 133/87; PULSE 80; RESP 16; TEMP 98.4
== END 2023-10-25 04:47 | disposition home or self-care (01) ==
LOC: ER 22:53
DX: S92.402A Displaced unspecified fracture of left great toe, initial encounter for closed fracture (principal); Z79.899 Other long term (current) drug therapy; W18.30XA Fall on same level, unspecified, initial encounter; Y93.89 Activity, other specified; Y92.89 Other specified places as the place of occurrence of the external cause; Y99.8 Other external cause status
CPT/HCPCS: 73630; 90471; 90715; 99283

== ENCOUNTER 2024-06-24 03:04 | Emergency (ER) | payer MEDICARE, OTHER ==
[~2024-06-24] VITALS: Ht 182.9 cm; Wt 74.0 kg
[~2024-06-24 03:04] MED LIST changes: -TAMS-11 MT; +TAMS-54 MT
[2024-06-24 03:06] VITALS: TEMP 36.3
[2024-06-24 05:00] VITALS: BP 141/85; O2SAT 99
[2024-06-24] MEDS: METHYLPREDNISOLONE SOD SUCC 125MG/2ML (ACT-O-VIAL) IV STA (05:05)
[2024-06-24] MEDS: MAGNESIUM 2 G PREMIX 50 ML IV ONE (05:05)
[2024-06-24] MEDS: ALBUTEROL (0.083%) 2.5MG/3ML NEB HHN SCH (05:14)
[2024-06-24] MEDS: IPRATROPIUM BROMIDE (0.02%) 0.5MG/2.5ML NEB HHN STA (05:15)
[2024-06-24 05:16] VITALS: PULSE 85; RESP 18; O2SAT 99
[2024-06-24 05:19] LABS: BASOPHILS % 0.3 % (0.0-2.0); EOSINOPHILS % 0.3 % (0.0-5.0); HEMATOCRIT. 42.9 % (42.0-52.0); HEMOGLOBIN. 13.7 g/dL (14.0-18.0); LYMPHOCYTES % 7.4 % (20.0-50.0); MEAN CORPUSCULAR HEMOGLOBIN 30.8 pg (28.0-32.0); MEAN PLATELET VOLUME 9.8 fl (7.4-10.4); MONOCYTES % 7.1 % (2.0-8.0); NEUTROPHILS % 84.9 % (40.0-76.0); PLATELET 140 x1000/uL (130-400); RED BLOOD CELL COUNT 4.47 mill/uL (4.7-6.1); RED CELL DISTRIBUTION WIDTH 16.3 % (11.6-14.6); WHITE BLOOD COUNT 7.5 x1000/uL (4.5-11.0)
[2024-06-24 05:53] LABS: CHLORIDE 101 mEq/L (98-107); POTASSIUM 4.5 mEq/L (3.5-5.1); SODIUM 140 mEq/L (136-145)
[2024-06-24 05:54] LABS: CARBON DIOXIDE 33 mEq/L (21-32)
[2024-06-24 05:55] LABS: CALCIUM 10.1 mg/dL (8.7-10.4)
[2024-06-24 05:59] LABS: GLUCOSE 117 mg/dL (70-105); UREA NITROGEN BLOOD 17 mg/dL (9-23)
[2024-06-24 06:01] LABS: TROPONIN I HIGH SENSITIVITY 5 ng/L (3.0-53)
[2024-06-24 06:10] LABS: CREATININE 1.5 mg/dL (0.6-1.3)
[2024-06-24] MEDS: ACETAMINOPHEN 325MG TABLET PO ONE (06:43)
[2024-06-24] MEDS ORDERED: ZIPRASIDONE HCL 40MG CAPSULE PO NR (11:35)
[2024-06-24] MEDS ORDERED: IPRATROPIUM/ALBUTEROL 0.5-3(2.5)MG/3ML NEB NEB SCH (11:35)
[2024-06-24] MEDS ORDERED: PANTOPRAZOLE SODIUM 40 MG/VIAL IV SCH (11:36)
[2024-06-24] MEDS ORDERED: TAMSULOSIN HCL 0.4MG SR CAPSULE PO SCH (11:37)
[2024-06-24] MEDS ORDERED: THIAMINE HCL 100MG TABLET PO SCH (11:37)
[2024-06-24] MEDS ORDERED: AMLODIPINE 5MG TABLET PO SCH (11:37)
[2024-06-24] MEDS ORDERED: ENOXAPARIN 40MG/0.4ML SYR SUBCUT SCH (11:38)
[2024-06-24] MEDS ORDERED: HYDROCORTISONE SOD SUCCINATE 100 MG/2 ML VIAL IV SCH (14:00)
[2024-06-24] MEDS ORDERED: MIRTAZAPINE 15MG TABLET PO SCH (21:00)
== END 2024-06-24 07:33 | disposition left against medical advice (07) ==
LOC: ER 03:04
DX: J96.01 Acute respiratory failure with hypoxia (principal); J44.1 Chronic obstructive pulmonary disease with (acute) exacerbation; E11.9 Type 2 diabetes mellitus without complications; I10 Essential (primary) hypertension; Z79.899 Other long term (current) drug therapy
CPT/HCPCS: 99291; 96365; 96375; 80048; 83880; 83605; 85025; 85379; 84484; 36415; 71045; 93005; 98960; 94644; J2919; J3475; 94070; 94640; 94664; J1720

== ENCOUNTER 2024-09-13 20:18 | Emergency (ER) | payer MEDICARE, OTHER ==
[~2024-09-13] VITALS: Ht 172.7 cm; Wt 43.0 kg
[2024-09-13 20:24] VITALS: O2SAT 92
[2024-09-13] MEDS: SODIUM CHLORIDE 0.9% 1,000 ML IV ONE (20:59)
[2024-09-13 21:07] LABS: HEMOGLOBIN. 10.8 g/dL (14.0-18.0); MEAN CORPUSCULAR HEMOGLOBIN 33.2 pg (28.0-32.0); MEAN CORPUSCULAR HGB CONC 32.8 g/dL (31.0-37.0); MEAN CORPUSCULAR VOLUME 101.2 fL (80.0-94.0); MEAN PLATELET VOLUME 9.1 fl (7.4-10.4); PLATELET 173 x1000/uL (130-400); RED BLOOD CELL COUNT 3.26 mill/uL (4.7-6.1); RED CELL DISTRIBUTION WIDTH 14.3 % (11.6-14.6); WHITE BLOOD COUNT 7.7 x1000/uL (4.5-11.0)
[2024-09-13 21:08] LABS: DIFFERENTIAL COMMENT 1
[2024-09-13 21:14] LABS: CHLORIDE 103 mEq/L (98-107); POTASSIUM 4.3 mEq/L (3.5-5.1); SODIUM 137 mEq/L (136-145)
[2024-09-13 21:15] LABS: CARBON DIOXIDE 27 mEq/L (21-32)
[2024-09-13 21:16] LABS: CALCIUM 9.9 mg/dL (8.7-10.4)
[2024-09-13 21:20] LABS: CREATININE 1.3 mg/dL (0.6-1.3); GLUCOSE 103 mg/dL (70-105); UREA NITROGEN BLOOD 23 mg/dL (9-23)
[2024-09-13 21:22] LABS: TROPONIN I HIGH SENSITIVITY 19 ng/L (3.0-53)
[2024-09-13 21:45] LABS: PLATELET ESTIMATE NORMAL
[2024-09-13] MEDS: FOLIC ACID 1 MG, THIAMINE HCL 100 MG, MVI, ADULT NO.1 10 ML in DEXTROSE 5% WATER 1,000 ML IV ONE (22:37)
[2024-09-13 22:52] LABS: TROPONIN I HIGH SENSITIVITY 23 ng/L (3.0-53)
[2024-09-14] MEDS ORDERED: LORAZEPAM 2MG/ML INJ IM ONE (00:45)
[2024-09-14] MEDS: DIPHENHYDRAMINE 50MG/ML VIAL IM PRN (00:50)
[2024-09-14] MEDS: HALOPERIDOL LACTATE 5MG/ML VIAL IM ONE (00:51)
[2024-09-14] MEDS: LORAZEPAM 2MG/ML UD SYRINGE IM SCH (01:09)
[2024-09-14 01:45] VITALS: BP 145/78; PULSE 94; RESP 15; TEMP 36.5; O2SAT 98
== END 2024-09-14 01:54 | disposition short-term general hospital (02) ==
LOC: ER 20:18
DX: R55 Syncope and collapse (principal); R62.7 Adult failure to thrive; J44.9 Chronic obstructive pulmonary disease, unspecified; E11.9 Type 2 diabetes mellitus without complications; I10 Essential (primary) hypertension; Z79.899 Other long term (current) drug therapy
CPT/HCPCS: 99285; 96365; 70450; 71045; 96361; 80048; 83880; 85025; 84484; 36415; 93005; 96372; J3490 ×2; J3411; J7070; J7030; J1200; J1630; J2060; A4606

== ENCOUNTER 2025-03-24 06:19 | Inpatient (IN) | payer MEDICARE, MEDICAID ==
[~2025-03-24] VITALS: Ht 170.2 cm; Wt 50.8 kg
[2025-03-24] VITALS (9 sets, daily range): BP systolic 105–144; BP diastolic 56–80; PULSE 69–105; RESP 18–20; TEMP 36.2–36.5; O2SAT 96–100
[2025-03-24] MEDS: SODIUM CHLORIDE 0.9% (SEPSIS BOLUS) IV ONE (06:50)
[2025-03-24] MEDS: CEFTRIAXONE 1GM/50ML 50 ML IV ONE (06:52)
[2025-03-24] MEDS: METHYLPREDNISOLONE SOD SUCC 125MG/2ML (ACT-O-VIAL) IV ONE (06:57)
[2025-03-24] MEDS: AZITHROMYCIN 500MG/250ML 250 ML IV ONE (07:14)
[2025-03-24 07:18] LABS: BASOPHILS % 0.4 % (0.0-2.0); EOSINOPHILS % 1.8 % (0.0-5.0); HEMATOCRIT. 30.3 % (42.0-52.0); HEMOGLOBIN. 9.5 g/dL (14.0-18.0); LYMPHOCYTES % 15.1 % (20.0-50.0); MEAN PLATELET VOLUME 10.8 fl (7.4-10.4); MONOCYTES % 9.1 % (2.0-8.0); NEUTROPHILS % 73.6 % (40.0-76.0); PLATELET 238 x1000/uL (130-400); RED BLOOD CELL COUNT 3.42 mill/uL (4.7-6.1); RED CELL DISTRIBUTION WIDTH 14.8 % (11.6-14.6)
[2025-03-24 07:30] LABS: INR 1.0
[2025-03-24] MEDS: ALBUTEROL (0.083%) 2.5MG/3ML NEB HHN SCH (07:31)
[2025-03-24] MEDS: IPRATROPIUM BROMIDE (0.02%) 0.5MG/2.5ML NEB HHN SCH (07:32)
[2025-03-24 07:33] LABS: CREATININE 0.8 mg/dL (0.6-1.3)
[2025-03-24 07:34] LABS: PROTEIN TOTAL 6.7 g/dL (6.0-8.3); UREA NITROGEN BLOOD 16 mg/dL (9-23)
[2025-03-24 07:35] LABS: ASPARTATE AMINOTRANSFERASE 11 IU/L (<34); TROPONIN I HIGH SENSITIVITY 5 ng/L (3.0-53)
[2025-03-24 07:36] LABS: BILIRUBIN DIRECT < 0.1 mg/dL (<=3.0); BILIRUBIN TOTAL 0.2 mg/dL (0.1-1.0)
[2025-03-24] MEDS ORDERED: CLONIDINE 0.1MG TABLET PO PRN (08:15)
[2025-03-24] MEDS ORDERED: HYDROCODONE/ACETAMINOPHEN 5/325MG TABLET PO PRN (08:15)
[2025-03-24] MEDS ORDERED: MORPHINE SULFATE 2 MG/ML INJ (NOT FOR IM USE) IV PRN (08:15)
[2025-03-24] MEDS ORDERED: ENOXAPARIN 40MG/0.4ML SYR SUBCUT SCH (08:15)
[2025-03-24] MEDS ORDERED: ONDANSETRON HCL 4MG/2ML INJ IV PRN (08:15)
[2025-03-24] MEDS ORDERED: MAGNESIUM/ALUMINUM HYDROXIDE/SIMETHICONE 30ML UDC PO PRN (08:15)
[2025-03-24] MEDS: METHYLPREDNISOLONE SOD SUCC 40MG/ML (ACT-O-VIAL) IV SCH (08:30)
[2025-03-24] MEDS: IPRATROPIUM/ALBUTEROL 0.5-3(2.5)MG/3ML NEB NEB SCH (08:30)
[2025-03-24] MEDS ORDERED: NALOXONE HCL 0.4MG/ML VIAL IV PRN (08:45)
[2025-03-24] MEDS: AMLODIPINE 5MG TABLET PO SCH (09:00)
[2025-03-24] MEDS ORDERED: LEVOFLOXACIN 500MG PREMIX 100 ML IV SCH ×2 (09:00→14:00)
[2025-03-24 09:27] LABS: TROPONIN I HIGH SENSITIVITY 4 ng/L (3.0-53)
[2025-03-24] MEDS: TAMSULOSIN HCL 0.4MG SR CAPSULE PO SCH (11:02)
[2025-03-24] MEDS: THIAMINE HCL 100MG TABLET PO SCH (11:02)
[2025-03-24] MEDS: ENOXAPARIN 30MG/0.3ML SYR SUBCUT SCH (11:03)
[2025-03-24] MEDS: PANTOPRAZOLE SODIUM 40 MG/VIAL IV SCH (11:03)
[2025-03-24] MEDS: NICOTINE 14MG PATCH TD SCH (11:30)
[2025-03-24 12:31] LABS: INFLUENZA TYPE A Presumptive Negative (Pres. Neg.); INFLUENZA TYPE B Presumptive Negative (Pres. Neg.)
[2025-03-24 12:32] LABS: RESPIRATORY SYNCYTIAL VIRUS Not Detected (Not Detectd)
[2025-03-24] MEDS: LEVOFLOXACIN 250MG TABLET PO SCH (15:49)
[2025-03-24] MEDS ORDERED: METO25TA6 PO (18:53)
[2025-03-24] MEDS ORDERED: OLAN10TA72 PO (18:53)
[2025-03-24] MEDS ORDERED: VALP250S25 PO (18:53)
[2025-03-24] MEDS ORDERED: TRAZ-252 PO (18:53)
[2025-03-24] MEDS ORDERED: FINA5TAB11 PO (18:53)
[2025-03-24] MEDS: MIRTAZAPINE 15MG TABLET PO SCH (21:00)
[2025-03-24] MEDS: IPRATROPIUM/ALBUTEROL 0.5-3(2.5)MG/3ML NEB HHN SCH (21:39)
[2025-03-24] MEDS: BUDESONIDE 0.5MG/2ML NEB HHN SCH (21:39)
[2025-03-25] VITALS (10 sets, daily range): BP systolic 108–115; BP diastolic 65–78; PULSE 87–109; RESP 18–20; TEMP 36.6–36.8; O2SAT 94–100
[2025-03-25] MEDS: ACETAMINOPHEN 325MG TABLET PO PRN (05:15)
[2025-03-25] MEDS: HALOPERIDOL LACTATE 5MG/ML VIAL IM NR (13:03)
[2025-03-25 13:12] LABS: BASOPHILS % 0.4 % (0.0-2.0); EOSINOPHILS % 1.0 % (0.0-5.0); HEMATOCRIT. 26.0 % (42.0-52.0); HEMOGLOBIN. 8.3 g/dL (14.0-18.0); LYMPHOCYTES % 22.8 % (20.0-50.0); MEAN PLATELET VOLUME 10.8 fl (7.4-10.4); MONOCYTES % 13.3 % (2.0-8.0); NEUTROPHILS % 62.5 % (40.0-76.0); PLATELET 230 x1000/uL (130-400); RED BLOOD CELL COUNT 2.98 mill/uL (4.7-6.1); RED CELL DISTRIBUTION WIDTH 14.5 % (11.6-14.6)
[2025-03-25 13:25] LABS: CREATININE 0.9 mg/dL (0.6-1.3); UREA NITROGEN BLOOD 17 mg/dL (9-23)
[2025-03-25] MEDS: ZOLPIDEM TARTRATE 5MG TABLET PO PRN (21:56)
[2025-03-25] MEDS: VALPROIC ACID 250MG CAPSULE PO SCH (22:46)
[2025-03-26] VITALS (10 sets, daily range): BP systolic 101–124; BP diastolic 68–87; PULSE 61–119; RESP 15–22; TEMP 36.4–36.9; O2SAT 95–98
[2025-03-26 10:25] LABS: HEMATOCRIT. 28.8 % (42.0-52.0); HEMOGLOBIN. 9.1 g/dL (14.0-18.0); RED BLOOD CELL COUNT 3.25 mill/uL (4.7-6.1); RED CELL DISTRIBUTION WIDTH 15.1 % (11.6-14.6)
[2025-03-26 11:10] LABS: BAND% 3.0 % (1.0-6.0); EOSINOPHILS % MANUAL 4.0 % (0.0-5.0); LYMPHOCYTES % MANUAL 35.0 % (20.0-50.0); MONOCYTES % MANUAL 11.0 % (2.0-8.0); NEUTROPHILS % MANUAL 47.0 % (45.0-75.0); PLATELET ESTIMATE NORMAL
[2025-03-26 11:11] LABS: PLATELET 230 x1000/uL (130-400)
[2025-03-26 11:17] LABS: CREATININE 0.9 mg/dL (0.6-1.3); UREA NITROGEN BLOOD 11 mg/dL (9-23)
[2025-04-01] MEDS ORDERED: LOSA50TA41 MT (10:44)
== END 2025-03-26 21:05 | DRG 189 ==
LOC: ER 06:19 → 7WST 07:32 → EDBEDREQTM 07:51 → EDBEDREQ 07:51 → 7WST 03-25 14:26
PROVIDERS: ADMIT Internal Medicine; ATTEND Internal Medicine
DX: J96.01 Acute respiratory failure with hypoxia (principal); J18.9 Pneumonia, unspecified organism; I13.0 Hypertensive heart and chronic kidney disease with heart failure and stage 1 through stage 4 chronic kidney disease, or unspecified chronic kidney disease; I20.0 Unstable angina; I50.9 Heart failure, unspecified; J44.0 Chronic obstructive pulmonary disease with (acute) lower respiratory infection; N18.9 Chronic kidney disease, unspecified; D64.9 Anemia, unspecified; J44.1 Chronic obstructive pulmonary disease with (acute) exacerbation; Z20.822 Contact with and (suspected) exposure to COVID-19; R13.10 Dysphagia, unspecified; E78.5 Hyperlipidemia, unspecified; F17.210 Nicotine dependence, cigarettes, uncomplicated; I49.3 Ventricular premature depolarization; Z79.82 Long term (current) use of aspirin; Z93.1 Gastrostomy status; Z79.899 Other long term (current) drug therapy
CPT/HCPCS: 36415; 71045; 80048; 80076; 83605; 83880; 84145; 84443; 84484; 85025; 87420; 87426; 87804; 93005; 94070; 94640; 94664; 94760; 96365; 96375; 99291; A4606; A4615; J0456; J0696; J1630; J1650; J1956; J2470; J2919; J7030; J7626